=== PATIENT | male | born 1960 ===

== ENCOUNTER 2018-09-06 11:00 | Day surgery (SDC) | payer OTHER ==
[2018-09-06] VITALS (8 sets, daily range): BP systolic 108–128; BP diastolic 56–87
[~2018-09-06] VITALS: Ht 182.9 cm; Wt 84.8 kg
--- NOTE | 2018-09-06 11:14 | Pre-Procedure Note/Attestation ---
Pre-Procedure Note/Attestation Complete Prior to Procedure Planned Procedure: left Procedure Narrative: 23G PPV/MP/gas left eye Indications for Procedure Pre-Operative Diagnosis: macular hole left eye Attestation I attest that I discussed the nature of the procedure; its benefits; risks and complications; and alternatives (and the risks and benefits of such alternatives ), prior to the procedure, with the patient (or the patient's legal unit support representative). I attest that, if there was a reasonable possibility of needing a blood transfusion, the patient (or the patient's legal unit support representative) was given the [facility] standardized written summary, pursuant to the [place] Blood Safety Act ([place] Health and Safety Code # 1645, as amended). I attest that I re-evaluated the patient just prior to the surgery and that there has been no change in the patient's H&P, except as documented below: Praneeth Francisco MD Sep 06, 2018 11:14
[2018-09-06] MEDS ORDERED: fentaNYL 100 mcg/2 mL IV ONE (11:16)
[2018-09-06] MEDS ORDERED: Midazolam 2mg/2ml Inj ONE (11:16)
[2018-09-06] MEDS ORDERED: Phenylephrine 2.5% Op 2ml Soln ONE (11:27)
[2018-09-06] MEDS ORDERED: Cyclopentolate 1% Opth Sol 2ml ONE (11:27)
[2018-09-06] MEDS ORDERED: Kenalog-40 1ml Vial ONE (11:38)
[2018-09-06] MEDS ORDERED: Lidocaine 2% MPF 5ml Vial INJ ONE (11:38)
[2018-09-06] MEDS ORDERED: EPINEPHrine 1mg/1ml Amp ONE (11:38)
[2018-09-06] MEDS ORDERED: Goniotaire 2.5% Opth Soln - 15ml ONE (11:39)
[2018-09-06] MEDS ORDERED: Tetracaine 0.5% Opth 4ml Soln ONE (11:39)
[2018-09-06] MEDS: Cyclopentolate 1% Opth Sol 2ml LEFT EYE SCH ×3 (11:39→11:50)
[2018-09-06] MEDS ORDERED: Maxitrol Opth Oint 3.5gm ONE (11:39)
[2018-09-06] MEDS: Phenylephrine 2.5% Op 2ml Soln LEFT EYE SCH ×3 (11:39→11:50)
[2018-09-06] MEDS ORDERED: BSS 15ml BTL ONE (11:39)
[2018-09-06] MEDS ORDERED: Dexamethasone 4mg/ml vial ONE (11:39)
[2018-09-06] MEDS ORDERED: BSS 500ml btl ONE (11:39)
[2018-09-06] MEDS ORDERED: Povidone-Iodine 5% opth solution ONE (11:39)
[2018-09-06] MEDS ORDERED: Bupivacaine 0.75% 30ml vial INJ ONE (11:40)
[2018-09-06] MEDS ORDERED: Indocyanine Green 25mg Inj INJ ONE (11:45)
[2018-09-06] MEDS ORDERED: NS Irrig 1000ml ONE (12:00)
[2018-09-06] MEDS ORDERED: Sterile Water Irrig 1000ml IRRIG ONE (12:00)
[2018-09-06] MEDS ORDERED: Propofol 200mg/20ml IV ONE (12:00)
[2018-09-06] MEDS ORDERED: LR 1000ml 1,000 ML IVLG SCH (12:26)
--- NOTE | 2018-09-06 12:26 | Anethesia Preoperative Eval ---
Anesthesia Pre-op PMH/ROS General Date of Evaluation: Sep 06, 2018 Time of Evaluation: 11:40 Anesthesiologist: Mabel ASA Score: ASA 3 Mallampati Score Class I : Soft palate, uvula, fauces, pillars visible Class II: Soft palate, uvula, fauces visible Class III: Soft palate, base of uvula visible Class IV: Only hard plate visible Mallampati Classification: Class II Surgeon: Maryam Diagnosis: L eye retyinal degeneration Surgical Procedure: L eye PPV, laser treatent Anesthesia History: none Family History: no anesthesia problems Allergies: Coded Allergies: No Known Allergies (Unverified , 09/05/18) Medications: see eMAR Patient NPO?: Yes Past Medical History Cardiovascular: Reports: HTN, arrhythmia Pulmonary: Denies: asthma, COPD, FRANCES, other Gastrointestinal/Genitourinary: Reports: GERD, other - 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 Exam Physician Exam Constitutional: NAD Neurologic: CN 2-12 intact Cardiovascular: RRR, no M/R/G Respiratory: CTA Gastrointestinal: S/NT/ND Airway Exam Mallampati Score: Class II MO: full Neck: stiff ROM: limited Teeth: intact Dentures: no upper, no lower Anesthesia Pre-op A/P Labs see chart Studies Pre-op Studies: EKG - SR Risk Assessment & Plan Assessment: ASA 3 Plan: MAC with retrobulbar block Status Change Before Surgery: No Pre-Antibiotics Drug: none Marck Monroe MD Sep 06, 2018 12:26
[2018-09-06] MEDS ORDERED: DiphenhydrAMINE 50mg/ml Inj IVP PRN (12:30)
[2018-09-06] MEDS ORDERED: fentaNYL 100 mcg/2 mL IV PRN (12:30)
--- NOTE | 2018-09-06 13:07 | Brief Operative Note ---
Immediate Post Operative Note Operative Note Chief Complaint: blurred vision left eye Pre-op Diagnosis: macular hole left eye Procedure: 23G PPV/MP/ICG/20%SF6 left eye Post-op Diagnosis: same as pre-op Findings: consistent w/pre-op dx studies Surgeon: Maryam Anesthesia: local Specimen: none Complications: none Condition: stable Fluids: <250cc Estimated Blood Loss: none Drains: none Implant(s) used?: No Praneeth Francisco MD Sep 06, 2018 13:07
--- NOTE | 2018-09-06 13:10 | Immediate Post-Op Evaluation ---
Immediate Post-Op Evalulation Immediate Post-Op Evalulation Procedure: L eye PPV laser treatment, fluid to gas exchange Date of Evaluation: Sep 06, 2018 Time of Evaluation: 13:09 IV Fluids: 300 Blood Products: none Estimated Blood Loss: none Urinary Output: none Blood Pressure Systolic: 127 Blood Pressure Diastolic: 86 Pulse Rate: 76 Respiratory Rate: 20 O2 Sat by Pulse Oximetry: 99 Temperature (Fahrenheit): 97.6 Pain Score (1-10): 1 Nausea: No Vomiting: No Complications none Patient Status: awake, patent, none Hydration Status: adequate Marck Monroe MD Sep 06, 2018 13:10
--- NOTE | 2018-09-06 17:00 | Operative Note - Dictated ---
DATE OF OPERATION: 09/06/2018 SURGEON: Praneeth Francisco M.D. PREOPERATIVE DIAGNOSIS: Macular hole, left eye. POSTOPERATIVE DIAGNOSIS: Macular hole, left eye. NAME OF OPERATION: A 23-gauge pars plana vitrectomy, membrane peel, ICG, and 20% SF6 gas, left eye. ANESTHESIA: Local. BLOOD LOSS: None. COMPLICATIONS: None. INDICATIONS: The patient is a 58-year-old male with a history of blurred vision in his left eye. He was found to have a full-thickness macular hole. The findings were discussed with the patient as well as the risks, benefits, and alternatives to the above-named procedure. The patient wishes to proceed with surgery. The patient understands the risks include, but are not limited to loss of vision and loss of the eye. Informed consent was obtained. DESCRIPTION OF PROCEDURE: On the day of the procedure, the left eye was noted to be the operative eye and marked. The patient received 3 sets of the standard preoperative eye drops in the holding area. The patient was then brought to the operating room where appropriate anesthesia monitors were placed. The left eye was again identified as the operative eye during time-out. The nonoperative eye was patched and shielded. The operative eye then received a retrobulbar block consisting of 1:1 mixture of 2% lidocaine without epinephrine and 0.75% bupivacaine for total 5 mL. Anesthesia and akinesia were noted to be obtained. The operative eye was then prepped and draped in the usual sterile ophthalmic fashion. The lid speculum was placed in the operative eye. The 23-gauge cannulas were placed with infusion located inferotemporally. A standard 3 port pars plana vitrectomy was then performed. The posterior vitreous detachment was already present. The posterior capsulotomy was performed with the vitreous cutter to clear the posterior capsular opacity. ICG dye was then used to stain the internal limiting membrane. The residual dye was then removed. The macular pucker and internal limiting membrane were peeled in a circumferential fashion around the macular hole and removed from the eye using intra-ocular forceps. An air-fluid exchange was then performed. 20% SF6 gas was then infused into the eye. The 23-gauge cannulas were then removed. The wounds were checked for leakage and found to be watertight. The trocar pressure was palpated and found to be within normal limits. The patient then received subconjunctival injections of vancomycin and dexamethasone. The lid speculum and drapes were then removed. Maxitrol ointment and atropine eye drops were applied to the eye and the eye was patched and shielded. The patient tolerated the procedure well and was returned to the postoperative care area in good condition. Praneeth Francisco M.D. DR: TANG JOB#: [id number] CC:
[2018-09-08] MEDS ORDERED: METOPROLOL TART25 MG ORAL (16:14)
[2018-09-08] MEDS ORDERED: SERTRALINE HCL100 MG PO (16:15)
[2018-09-08] MEDS ORDERED: ASPIR 8181 MG ORAL (16:15)
[2018-09-08] MEDS ORDERED: DIAZEPAM5 MG ORAL (16:16)
[2018-09-08] MEDS ORDERED: PANTOPRAZOLE SO40 MG ORAL (16:16)
[2018-09-08] MEDS ORDERED: FISH OIL CAP1000 MG ORAL (16:17)
[2018-09-08] MEDS ORDERED: MULTIVITAMINS1 EAC2 ORAL (16:18)
[2018-09-08] MEDS ORDERED: Vit D3 PO (16:20)
[2018-09-08] MEDS ORDERED: astelin nasal spray NASAL (16:21)
== END 2018-09-06 14:00 | disposition home or self-care (01) ==
LOC: SUR 11:00
DX: H35.342 Macular cyst, hole, or pseudohole, left eye (principal); G47.33 Obstructive sleep apnea (adult) (pediatric); E03.9 Hypothyroidism, unspecified; M81.0 Age-related osteoporosis without current pathological fracture; I48.0 Paroxysmal atrial fibrillation; H66.90 Otitis media, unspecified, unspecified ear; I10 Essential (primary) hypertension; K50.90 Crohn's disease, unspecified, without complications; D56.3 Thalassemia minor; E29.1 Testicular hypofunction; H90.5 Unspecified sensorineural hearing loss; M48.061 Spinal stenosis, lumbar region without neurogenic claudication
CPT/HCPCS: 67042; J0171; J0690; J1100; J2250; J2704; J3010; J3490; 94003; 94150